=== PATIENT | male | born 1955 | race Caucasian/White ===

== ENCOUNTER 2018-09-29 12:40 | Emergency (ER) | payer OTHER ==
[2018-09-29 13:23] VITALS: BP 127/80
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
== END 2018-09-29 14:16 | disposition home or self-care (01) ==
LOC: UCCORT 12:40
DX: M77.8 Other enthesopathies, not elsewhere classified (principal)
CPT/HCPCS: 99201; G0463